=== PATIENT | female | born 1955 | race Caucasian/White ===

== ENCOUNTER → 2023-11-21 13:40 | Outpatient (REF) | payer BC, SELFPAY | LOC: WDC 13:40 | PROVIDERS: ATTENDING PHYSICIAN Family Medicine | DX: Z12.31 Encounter for screening mammogram for malignant neoplasm of breast (principal) | CPT/HCPCS: 77063; 77067 ==

== ENCOUNTER → 2024-11-21 14:56 | Outpatient (REF) | payer OTHER, SELFPAY | LOC: WDC 14:56 | PROVIDERS: ATTENDING PHYSICIAN Obstetrics & Gynecology Gynecology; FAMILY PHYSICIAN Family Medicine | DX: Z12.31 Encounter for screening mammogram for malignant neoplasm of breast (principal) | CPT/HCPCS: 77063; 77067 ==

== ENCOUNTER → 2024-12-12 10:22 | Outpatient (REF) | payer OTHER, SELFPAY | LOC: WDC 10:22 | PROVIDERS: ATTENDING PHYSICIAN Obstetrics & Gynecology Gynecology; FAMILY PHYSICIAN Family Medicine | DX: R92.8 Other abnormal and inconclusive findings on diagnostic imaging of breast (principal) | CPT/HCPCS: 76642 ==